=== PATIENT | male | born 2000 | race Caucasian/White ===

== ENCOUNTER 2021-11-11 03:35 | Emergency (ER) | payer OTHER, SELFPAY ==
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
[2021-11-11 03:40] VITALS: BP 148/98; PULSE 94; RESP 20; TEMP 36.2; O2SAT 98; BMI 25.1
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
[2021-11-11] MEDS: Lidocaine 4 % Cream KIT 1 APPL TOPICAL (04:14)
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
--- NOTE | 2021-11-11 04:59 | PC.NURSE ---
pt left before taking his pill. pt verbalized u/s of d/c instructions and left ed ambulatory with steady even gait to .
== END 2021-11-11 19:34 | disposition home or self-care (01) ==
PROVIDERS: Emergency Provider Emergency Medicine; PCP Dentist Periodontics
DX: S01.21XA Laceration without foreign body of nose, initial encounter (principal); S02.2XXA Fracture of nasal bones, initial encounter for closed fracture; S02.5XXA Fracture of tooth (traumatic), initial encounter for closed fracture; Y04.2XXA Assault by strike against or bumped into by another person, initial encounter; Y93.89 Activity, other specified; Y92.9 Unspecified place or not applicable; Y99.9 Unspecified external cause status
CPT/HCPCS: 12011; 70450; 70486; 99283; 99284